=== PATIENT | male | born 1955 | race Caucasian/White ===

== ENCOUNTER 2016-10-08 09:38 | Day surgery (SDC) | payer OTHER ==
[2016-10-08] MEDS ORDERED: FAMOTIDINE 20 MG TAB PO ONE (09:59)
[2016-10-08] MEDS ORDERED: DIAZEPAM 5 MG TAB PO ONE (09:59)
[2016-10-08] MEDS ORDERED: ASPIRIN EC 325 MG TAB PO ONE ×2 (09:59→10:17)
[2016-10-08] MEDS ORDERED: diphenhydrAMINE 25 MG CAP PO ONE ×2 (09:59→10:17)
[2016-10-08] MEDS ORDERED: NS 1,000 ML IV ONE (09:59)
[2016-10-08] MEDS ORDERED: FAMOTIDINE 20 MG TAB ONE (10:17)
[2016-10-08] MEDS ORDERED: DIAZEPAM 5 MG TAB ONE (10:17)
[2016-10-08 10:26] LABS: % IMMATURE GRANULYOCYTES 0.4 % (0.0-1.1); ABSOLUTE IMMATURE GRANULOCYTES 0.03 10^3/uL (0.00-0.10); ADD DIFF? NO; ADD MORPH? NO; ADD SCAN? NO; ATYPICAL LYMPHOCYTE FLAG 30 (0-99); FRAGMENT RBC FLAG 0 (0-99); HEMATOCRIT 44.2 % (40.0-51.0); HEMOGLOBIN 15.6 g/dL (13.7-17.5); LEFT SHIFT FLG 0 (0-99); LIPEMIA HEMOLYSIS FLAG 90 (0-99); MEAN CELL HEMOGLOBIN 29.3 pg (27.9-34.1); MEAN CELL HEMOGLOBIN CONCENTR. 35.3 g/dL (32.4-36.7); MEAN CELL VOLUME 83.1 fL (81.5-99.8); PLATELET CLUMPS FLAG 0 (0-99); PLATELET COUNT 234 10^3/uL (150-400); RED BLOOD CELL COUNT 5.32 10^6/uL (4.40-6.38); RED CELL DISTRIBUTION WIDTH 12.5 % (11.5-15.2)
[2016-10-08 10:35] LABS: INR 1.1 (0.83-1.16); PROTIME(PATIENT) 14.1 SEC (12.0-15.0)
[2016-10-08 10:43] LABS: ANION GAP 11 mEq/L (8-16); CALCIUM 9.3 mg/dL (8.5-10.4); CARBON DIOXIDE 30 mEq/l (22-31); CHLORIDE 102 mEq/L (97-110); CHOLESTEROL 89 mg/dL (140-220); CHOLESTEROL/HDL RATIO 3.71 RATIO (1.00-4.97); CREATININE 0.9 mg/dL (0.7-1.3); GLOMERULAR FILTRATION RATE > 60; GLUCOSE 116 mg/dL (70-100); HIGH DENSITY LIPOPROTEIN 24 mg/dL (40-65); LDL/HDL RATIO 1.63 RATIO (1.00-3.64); LOW DENSITY LIPOPROTEIN 39 mg/dL (80-100); NON-HIGH DENSITY LIPOPROTEIN 65 mg/dL (90-129); POTASSIUM 3.4 mEq/L (3.5-5.2); SODIUM 143 mEq/L (134-144); TRIGLYCERIDE 134 mg/dL (40-150); VERY LOW DENSITY LIPOPROTEINS 26 mg/dL (8-25)
[2016-10-08] MEDS ORDERED: fentaNYL 100 MCG/2 ML INJ ONE (12:42)
[2016-10-08] MEDS ORDERED: LIDOCAINE 1% 30 ML SDV ONE (12:42)
[2016-10-08] MEDS ORDERED: HEPARIN 10,000 UNIT/10 ML MDV ONE (12:43)
[2016-10-08] MEDS ORDERED: IOPAMIDOL (ISOVUE-370) 150 ML BTL IV ONE (12:43)
[2016-10-08] MEDS ORDERED: VERAPAMIL 5 MG/2 ML VIAL ONE (12:43)
[2016-10-08] MEDS ORDERED: MIDAZOLAM 2 MG/2 ML VIAL ONE (12:43)
[2016-10-08] MEDS ORDERED: NITROGLYCERIN 1,500 MCG/15 ML VIAL MISC ONE (13:42)
--- NOTE | 2016-10-15 15:26 | PDDXCAT ---
Diagnostic Cath Note - . Date: 10/15/16 Clerical Assistant: Ezio Indication: Class I/II angina, intolerance to med therapy or failure to respond - Procedure Access: right wrist Procedure: left heart catheterization, coronary angiography - Materials Left Heart Cath size: 5F Left Heart Cath materials: pigtail, other (SiteSeer) - Findings-Left Heart Catheterization LM: Unobstructed LAD: Stent patent with minimal luminal irregularities LCX: Luminal irregularities. No focal stenosis RCA: Luminal irregularities EDP: 13 mmHg LVEF: 65% Wall motion: Normal Complications: none Estimated blood loss: <50ml Closure method: TR Band Assessment: Patent LAD stent. Mild non-obstructive atherosclerotic heart disease. Normal LV function
== END 2016-10-08 18:02 | disposition home or self-care (01) ==
LOC: FCATH 09:38
PROVIDERS: ATTEND Internal Medicine Interventional Cardiology
PROC: 4A023N7 Measurement of Cardiac Sampling and Pressure, Left Heart, Percutaneous Approach (ICD-10-PCS; principal; 2016-10-08)
PROC: B2151ZZ Fluoroscopy of Left Heart using Low Osmolar Contrast (ICD-10-PCS; principal; 2016-10-08)
PROC: B2111ZZ Fluoroscopy of Multiple Coronary Arteries using Low Osmolar Contrast (ICD-10-PCS; principal; 2016-10-08)
DX: I25.119 Atherosclerotic heart disease of native coronary artery with unspecified angina pectoris (principal); E78.5 Hyperlipidemia, unspecified; I11.0 Hypertensive heart disease with heart failure; Z95.5 Presence of coronary angioplasty implant and graft
CPT/HCPCS: 93458; C1769; J1644; J2250; J3010; Q9967

== ENCOUNTER → 2016-12-07 | Outpatient (CLI) | payer OTHER | LOC: BMCIMAGING 10:16 | PROVIDERS: ATTEND Podiatrist Foot & Ankle Surgery | DX: M79.671 Pain in right foot (principal); M79.89 Other specified soft tissue disorders ==

== ENCOUNTER 2017-06-22 10:13 | Emergency (ER) | payer OTHER ==
[2017-06-22 10:18] VITALS: TEMP 98.2
--- NOTE | 2017-06-22 10:27 | CPEKG ---
Heart Rate: 51 RR Interval: 1176 P-R Interval: 152 QRSD Interval: 86 QT Interval: 452 QTC Interval: 417 P Mcfaddin: 47 QRS Mcfaddin: 15 T Wave Mcfaddin: 8 EKG Severity - NORMAL ECG - EKG Impression: SINUS RHYTHM Electronically Signed By: Sergio Brown 22-Jun-2017 15:18:50
[2017-06-22 10:40] LABS: % IMMATURE GRANULYOCYTES 0.3 % (0.0-1.1); ABSOLUTE IMMATURE GRANULOCYTES 0.03 10^3/uL (0.00-0.10); ADD DIFF? NO; ADD MORPH? NO; ADD SCAN? NO; ATYPICAL LYMPHOCYTE FLAG 0 (0-99); FRAGMENT RBC FLAG 0 (0-99); HEMATOCRIT 46.9 % (40.0-51.0); HEMOGLOBIN 17.2 g/dL (13.7-17.5); LEFT SHIFT FLG 0 (0-99); LIPEMIA HEMOLYSIS FLAG 90 (0-99); MEAN CELL HEMOGLOBIN 30.6 pg (27.9-34.1); MEAN CELL HEMOGLOBIN CONCENTR. 36.7 g/dL (32.4-36.7); MEAN CELL VOLUME 83.3 fL (81.5-99.8); MEAN PLATELET VOLUME 10.2 fL (8.7-11.7); PLATELET CLUMPS FLAG 0 (0-99); PLATELET COUNT 269 10^3/uL (150-400); RED BLOOD CELL COUNT 5.63 10^6/uL (4.40-6.38); RED CELL DISTRIBUTION WIDTH 12.5 % (11.5-15.2)
[2017-06-22 10:50] LABS: ANION GAP 14 mEq/L (8-16); CALCIUM 9.9 mg/dL (8.5-10.4); CARBON DIOXIDE 26 mEq/l (22-31); CHLORIDE 96 mEq/L (97-110); CREATININE 0.9 mg/dL (0.7-1.3); GLOMERULAR FILTRATION RATE > 60; GLUCOSE 253 mg/dL (70-100); POTASSIUM 3.9 mEq/L (3.5-5.2); SODIUM 136 mEq/L (134-144)
[2017-06-22 11:00] LABS: TROPONIN I < 0.012 ng/mL (0.000-0.034)
--- NOTE | 2017-06-22 12:05 | EDPHY ---
H & P Stated Complaint: Midsternal CP since this am;+cardiac hx Time Seen by Provider: 06/22/17 12:03 - Personal History Current Tetanus Diphtheria and Acellular Pertussis (TDAP): Yes - Medical/Surgical History Hx Cardiac Disease: Yes Other PMH: stents. pancreotectomy for tumor - Social History Smoking Status: Former smoker Constitutional: Initial Vital Signs Temperature (C) 36.8 C 06/22/17 10:15 Heart Rate 54 L 06/22/17 10:15 Respiratory Rate 16 06/22/17 10:15 Blood Pressure 160/97 H 06/22/17 10:15 O2 Sat (%) 98 06/22/17 10:15 O2 Delivery Mode Room Air Allergies/Adverse Reactions: No Known Allergies Allergy (Verified 06/22/17 10:18) Home Medications: Medication Instructions Recorded Clopidogrel Bisulfate [Plavix (RX)] 75 mg PO DAILY@07/29/12 Aspirin [Aspirin 81mg (*)] 81 mg PO DAILY@10/08/16 Atorvastatin Calcium [Lipitor 80 80 mg PO DAILY@10/08/16 mg] Hydrochlorothiazide [HCTZ (*)] 25 mg PO DAILY@10/08/16 Lisinopril [Zestril 40 mg (*)] 40 mg PO DAILY@10/08/16 Metoprolol Tartrate [Lopressor 25 25 mg PO BID@,10/08/16 mg (*)] Medical Decision Making - Diagnostics Imaging Results: Imaging Impressions Chest X-Ray 06/22/17 10:35 Impression: 1. No active cardiopulmonary disease seen. 2. LAD coronary stent noted. Imaging: I viewed and interpreted images myself ED Course/Re-evaluation: CHIEF COMPLAINT: Chest pain HISTORY OF PRESENT ILLNESS: This patient is a 62 year old male with history of CAD and four prior stent placements complaining of several episodes of chest pain onset earlier today. His pain is localized to his midsternal area. He has had 3-4 episodes today, each lasting about 10-20 seconds. This does not feel similar to his prior cardiac events, in which his pain was more left-sided and radiated to his neck and shoulder. Today, he notes some mild shoulder pain, but feels this is musculoskeletal from going to the gym. He is typically followed by Dr. Arellano, search engine marketing manager, but has not had an appointment in quite some time. His first stent placement was in 1997, and his latest in 2007, completed by Dr. Callahan, search engine marketing manager. Today, he does not have shortness of breath, fever, nausea, vomiting, or other associated symptoms. REVIEW OF SYSTEMS: A 10 point review of systems was performed and is negative with the exception of the elements mentioned in the history of present illness. PHYSICAL EXAM: HR, BP, O2 Sat, RR. Temp noted General Appearance: Alert, well hydrated, appropriate, and non-toxic appearing. Head: Atraumatic without scalp tenderness or obvious injury Eyes: Pupils equal, round, reactive to light and accommodation, EOMI, no trauma , no injection. Ears: Clear bilaterally, no perforation, normal landmarks Nose: Atraumatic, no rhinorrhea, clear. Throat: There is no erythema or exudates, no lesions, normal tonsils, mucus membranes moist. Neck: Supple, 2+ carotid upstroke, nontender, no lymphadenopathy. Respiratory: No retractions, no distress, no wheezes, and no accessory muscle use. Lungs are clear to auscultation bilaterally. Cardiovascular: Regular rate and rhythm, no murmurs, rubs, or gallops. Bilateral carotid, radial, dorsalis pedis, and posterior tibial pulses intact. Good capillary refill all extremities. Gastrointestinal: Abdomen is soft, nontender, non-distended. Musculoskeletal: Normal active ROM of all extremities, atraumatic. Neurological: Alert, appropriate, and interactive. Nonfocal neuro exam. Skin: No rashes, good turgor, no nodules on palpation. Past medical history: CAD, Past surgical history: Stent placement x 4, Pancreatectomy Family history: Noncontributory Social history: . Lives in [place]. Former smoker. No alcohol or drug use. DIFFERENTIAL DIAGNOSIS: The differential diagnosis for the patient's chest pain included but was not limited to myocardial ischemia, pulmonary embolus, chest wall pain, pleural inflammation, and pulmonary infectious causes. PROCEDURES: The 12 lead EKG was interpreted by myself. See hard copy and/or "tracemaster" electronic copy for interpretation. MEDICAL DECISION MAKIN62 year old male with history of CAD s/p stent placement x 4 presents with several brief episodes of chest pain today. Exam is unremarkable. His pain today is not consistent with that prior to his past stent placements. Plan to consult with Dr. Arellano, search engine marketing manager. Plan for EKG, chest x-ray, labs including CBC, BMP, Troponin. Chest x-ray negative for acute processes. EKG shows sinus rhythm, rate 51. Laboratory studies unremarkable. Troponin negative. 12:40 Consulted with search engine marketing manager livestock commission agent. The patient will have outpatient followup with [facility] for a stress test in the next 1-2 days. Reassessed patient. Discussed results and follow with the patient. He understands [facility] should call him for an appointment, but to follow up in 1-2 days regardless. Return precautions discussed. He is comfortable with this plan. - Data Points Laboratory Results: Laboratory Results 06/22/17 10:30 06/22/17 10:30 06/22/17 06/22/17 10:30 10:30 WBC 9.38 10^3/uL 10^3/uL (3.80-9.50) RBC 5.63 10^6/uL 10^6/uL (4.40-6.38) Hgb 17.2 g/dL g/dL (13.7-17.5) Hct 46.9 % % (40.0-51.0) MCV 83.3 fL fL (81.5-99.8) MCH 30.6 pg pg (27.9-34.1) MCHC 36.7 g/dL g/dL (32.4-36.7) RDW 12.5 % % (11.5-15.2) Plt Count 269 10^3/uL 10^3/uL (150-400) MPV 10.2 fL fL (8.7-11.7) Neut % (Auto) 70.6 % % (39.3-74.2) Lymph % (Auto) 19.7 % % (15.0-45.0) [place] % (Auto) 7.9 % % (4.5-13.0) Eos % (Auto) 1.1 % % (0.6-7.6) Baso % (Auto) 0.4 % % (0.3-1.7) Nucleat RBC Rel Count 0.0 % % (0.0-0.2) Absolute Neuts (auto) 6.62 10^3/uL H 10^3/uL (1.70-6.50) Absolute Lymphs (auto) 1.85 10^3/uL 10^3/uL (1.00-3.00) Absolute Monos (auto) 0.74 10^3/uL 10^3/uL (0.30-0.80) Absolute Eos (auto) 0.10 10^3/uL 10^3/uL (0.03-0.40) Absolute Basos (auto) 0.04 10^3/uL 10^3/uL (0.02-0.10) Absolute Nucleated RBC 0.00 10^3/uL 10^3/uL (0-0.01) Immature Gran % 0.3 % % (0.0-1.1) Immature Gran # 0.03 10^3/uL 10^3/uL (0.00-0.10) Sodium 136 mEq/L mEq/L (134-144) Potassium 3.9 mEq/L mEq/L (3.5-5.2) Chloride 96 mEq/L L mEq/L (97-110) Carbon Dioxide 26 mEq/l mEq/l (22-31) Anion Gap 14 mEq/L mEq/L (8-16) BUN 20 mg/dL mg/dL (7-23) Creatinine 0.9 mg/dL mg/dL (0.7-1.3) Estimated GFR > 60 Glucose 253 mg/dL H mg/dL (70-100) Calcium 9.9 mg/dL mg/dL (8.5-10.4) Troponin I < 0.012 ng/mL ng/mL (0.000-0.034) Departure - Departure Disposition: Home, Routine, Self-Care Clinical Impression: Atypical chest pain Condition: Good Instructions: Chest Pain (ED) Additional Instructions: 1. I spoke with [facility] [employer] [facility], they should call you for an appointment for a stress test in the next 1-2 days. 2. Follow up with Dr. Arellano for further evaluation. 3. Return to the emergency department for recurrent, increased, or changing chest pain, shortness of breath, fever, vomiting, or other worsening of condition. Referrals: Adrienne Bashir MD [Primary Care Provider] - As per Instructions Adan Arellano MD [Medical Doctor] - As per Instructions Report Scribed for: Sergio Brown Report Scribed by: Lizzette Bragg Date of Report: 06/22/17 Time of Report: 12:55
[2017-06-22 12:18] VITALS: BP 155/88; PULSE 55; RESP 18; O2SAT 97
== END 2017-06-22 12:40 | disposition home or self-care (01) ==
DX: R07.89 Other chest pain (principal); I25.10 Atherosclerotic heart disease of native coronary artery without angina pectoris; Z79.82 Long term (current) use of aspirin; Z87.891 Personal history of nicotine dependence; Z95.5 Presence of coronary angioplasty implant and graft

== ENCOUNTER → 2017-07-06 | Outpatient (CLI) | payer OTHER ==
[~2017-07-06] MED LIST: IOPAMIDOL (ISOVUE-300) 100 ML BTL ONE
== END ==
LOC: FIMAGING 12:58
PROVIDERS: ATTEND Family Medicine
DX: R16.1 Splenomegaly, not elsewhere classified (principal); N28.1 Cyst of kidney, acquired; R63.4 Abnormal weight loss
CPT/HCPCS: Q9967

== ENCOUNTER 2018-01-20 09:48 | Emergency (ER) | payer OTHER ==
--- NOTE | 2018-01-20 10:33 | EDPHY ---
H & P Time Seen by Provider: 01/20/18 10:14 HPI/ROS: CHIEF COMPLAINT: Left leg swelling and pain HISTORY OF PRESENT ILLNESS: 62-year-old male with history of coronary artery disease and dyslipidemia and Iraheta cyst here with 1 day of left lower extremity pain and swelling. He states there was no injury to the leg. He denies any fever or erythema. Denies any numbness or paresthesias. He states he had similar pain and swelling once before 2 years ago and was diagnosed with a ruptured Iraheta cyst. States this feels slightly different. He denies any chest pain or shortness of breath. He has no history of heart failure. He has noticed no swelling to the right leg. REVIEW OF SYSTEMS: Constitutional: No fever, no chills. Eyes: No discharge. ENT: No sore throat. Cardiovascular: No chest pain, no palpitations. Respiratory: No cough, no shortness of breath. Gastrointestinal: No abdominal pain, no vomiting. Genitourinary: No hematuria. Musculoskeletal: No back pain. Skin: No rashes. Neurological: No headache. No joint swelling Smoking Status: Former smoker Physical Exam: General Appearance: Alert and no distress. Eyes: Pupils equal and round no injection. Respiratory: Chest is nontender, lungs are clear to auscultation. Cardiac: regular rate and rhythm. Gastrointestinal: Abdomen is soft and nontender, no masses, bowel sounds normal. Musculoskeletal: Neck is supple and nontender. Extremities have full range of motion and are nontender. Left leg with 1+ pitting edema. Pedal pulses are strong. Cap refill less than 3 sec in all 5 toes. Normal pallor. No erythema. Skin: No rashes or lesions. Constitutional: Initial Vital Signs Temperature (C) 36.7 C 01/20/18 09:51 Heart Rate 56 L 01/20/18 09:51 Respiratory Rate 16 01/20/18 09:51 Blood Pressure 146/77 H 01/20/18 09:51 O2 Sat (%) 98 01/20/18 09:51 O2 Delivery Mode Room Air Allergies/Adverse Reactions: No Known Allergies Allergy (Verified 01/20/18 09:50) Home Medications: Medication Instructions Recorded Clopidogrel Bisulfate [Plavix (RX)] 75 mg PO DAILY@07/29/12 Aspirin [Aspirin 81mg (*)] 81 mg PO DAILY@10/08/16 Atorvastatin Calcium [Lipitor 80 80 mg PO DAILY@10/08/16 mg] Hydrochlorothiazide [HCTZ (*)] 25 mg PO DAILY@10/08/16 Lisinopril [Zestril 40 mg (*)] 40 mg PO DAILY@10/08/16 Metoprolol Tartrate [Lopressor 25 25 mg PO BID@08,10/08/16 mg (*)] Metformin HCl 01/20/18 Medical Decision Making - Diagnostics Imaging Results: Imaging Impressions Extremity Venous Study 01/20/18 09:56 Impression: 1. No deep venous thrombosis left leg. 2. 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 If this appears to be the source of patient's symptoms, MRI could be considered to assess for impingement. , ED Course/Re-evaluation: 62-year-old male here with 2 days of left lower extremity swelling. He has a history of prior similar event with diagnosis of Iraheta cyst. Today ultrasound shows probable Iraheta cyst with no evidence of DVT. He is afebrile not tachycardic at with no evidence of cellulitis, abscess, necrotizing fasciitis. Distal pulses are strong knee has normal sensation. 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 Patient declined pain medication. Differential Diagnosis: Hematoma, Iraheta cyst, DVT, cellulitis - Data Points Laboratory Results: Laboratory Results 01/20/18 10:24 01/20/18 10:24 01/20/18 01/20/18 10:24 10:24 WBC 10.71 10^3/uL H 10^3/uL (3.80-9.50) RBC 5.35 10^6/uL 10^6/uL (4.40-6.38) Hgb 15.7 g/dL g/dL (13.7-17.5) Hct 45.9 % % (40.0-51.0) MCV 85.8 fL fL (81.5-99.8) MCH 29.3 pg pg (27.9-34.1) MCHC 34.2 g/dL g/dL (32.4-36.7) RDW 13.2 % % (11.5-15.2) Plt Count 281 10^3/uL 10^3/uL (150-400) MPV 10.5 fL fL (8.7-11.7) Neut % (Auto) 69.4 % % (39.3-74.2) Lymph % (Auto) 17.0 % % (15.0-45.0) [place] % (Auto) 11.1 % % (4.5-13.0) Eos % (Auto) 1.7 % % (0.6-7.6) Baso % (Auto) 0.4 % % (0.3-1.7) Nucleat RBC Rel Count 0.0 % % (0.0-0.2) Absolute Neuts (auto) 7.44 10^3/uL H 10^3/uL (1.70-6.50) Absolute Lymphs (auto) 1.82 10^3/uL 10^3/uL (1.00-3.00) Absolute Monos (auto) 1.19 10^3/uL H 10^3/uL (0.30-0.80) Absolute Eos (auto) 0.18 10^3/uL 10^3/uL (0.03-0.40) Absolute Basos (auto) 0.04 10^3/uL 10^3/uL (0.02-0.10) Absolute Nucleated RBC 0.00 10^3/uL 10^3/uL (0-0.01) Immature Gran % 0.4 % % (0.0-1.1) Immature Gran # 0.04 10^3/uL 10^3/uL (0.00-0.10) Sodium 141 mEq/L mEq/L (135-145) Potassium 3.7 mEq/L mEq/L (3.3-5.0) Chloride 97 mEq/L mEq/L (97-110) Carbon Dioxide 30 mEq/l mEq/l (22-31) Anion Gap 14 mEq/L mEq/L (8-16) BUN 24 mg/dL H mg/dL (7-23) Creatinine 0.9 mg/dL mg/dL (0.7-1.3) Estimated GFR > 60 Glucose 93 mg/dL mg/dL (70-100) Calcium 10.2 mg/dL mg/dL (8.5-10.4) Departure - Departure Disposition: Home, Routine, Self-Care Clinical Impression: Cyst, Iraheta's knee Condition: Good Instructions: Bakers Cyst (ED) Additional Instructions: Please call Orthopedics today for follow-up early next week. Take Tylenol as needed for pain. Return to the ER for worsening pain, fever, numbness or other worrisome symptoms. Referrals: Adrienne Bashir MD [Primary Care Provider] - As per Instructions Nico Hodges MD [Medical Doctor] - As per Instructions
[2018-01-20 10:53] LABS: PLATELET COUNT 281 10^3/uL (150-400)
[2018-01-20 12:05] VITALS: BP 134/78
== END 2018-01-20 12:02 | disposition home or self-care (01) ==
DX: M71.22 Synovial cyst of popliteal space [Baker], left knee (principal); Z79.82 Long term (current) use of aspirin; Z87.891 Personal history of nicotine dependence